=== PATIENT | male | born 1990 | race Hispanic/Latino ===

== ENCOUNTER 2017-05-23 19:59 | Inpatient (IN) | payer MEDICAID ==
--- NOTE | 2017-05-23 20:33 | C.PDOC ---
History Of Present Illness 27 year old male, with a history of alcohol abuse, presents to the ED request detox from alcohol. Patient notes last drink was earlier today around 4PM. Pt admits, was at different detox program before, failed treatment. Otherwise, pt denies other drug abuse, denies suicidal or homicidal ideation, denies nay other active physical complaints. Ambulate to ED for evaluation, not in any apparent distress, appropriate, cooperative. Time Seen by Provider: 05/23/17 20:19 Chief Complaint (Nursing): Substance Abuse History Per: Patient History/Exam Limitations: no limitations Suicide/Self Injury Attempted (Context): None Modifying Factor(s): Alcohol Severity: None Pain Scale Rating Of: 0 Associated Symptoms: denies: Suicidal Thoughts, Suicidal Plan Involuntary Hold By: None Recent travel outside of the [place]: No Past Medical History Reviewed: Historical Data, Nursing Documentation, Vital Signs Vital Signs: Last Vital Signs Temp 97.9 F 05/23/17 20:07 Pulse 92 H 05/23/17 20:07 Resp 18 05/23/17 20:07 BP 114/71 05/23/17 20:07 Pulse Ox 98 05/23/17 21:04 Family History: States: Unknown Family Hx - Social History Hx Alcohol Use: Yes Hx Substance Use: No Review Of Systems Constitutional: Negative for: Fever Cardiovascular: Negative for: Chest Pain Respiratory: Negative for: Shortness of Breath Gastrointestinal: Negative for: Nausea, Vomiting, Abdominal Pain, Diarrhea Psych: Negative for: Suicidal ideation Physical Exam - Physical Exam Appears: Well, Non-toxic, No Acute Distress Skin: Warm, Dry, No Rash Head: Atraumatic, Normacephalic Eye(s): bilateral: PERRL Nose: No Flaring Oral Mucosa: Moist, No Drooling Tongue: Normal Appearing Lips: Normal Appearing Throat: No Erythema, No Exudate, No Drooling Neck: Trachea Midline, Supple Chest: Symmetrical, No Deformity Cardiovascular: Rhythm Regular, No Murmur, No JVD Respiratory: No Decreased Breath Sounds, No Accessory Muscle Use, No Rales, No Rhonchi, No Wheezing Gastrointestinal/Abdominal: Soft, No Tenderness, No Distention, No Guarding, No Rebound Back: No CVA Tenderness, No Vertebral Tenderness Extremity: Normal ROM, No Tenderness, No Deformity, No Swelling Neurological/Psych: Oriented x3, Normal Speech, Normal Cognition, No Cerebellar Signs, Normal Motor, Normal Sensation, Normal Reflexes Gait: Steady ED Course And Treatment - Laboratory Results Result Diagrams: 05/23/17 20:38 05/23/17 20:38 Lab Interpretation: No Acute Changes O2 Sat by Pulse Oximetry: 98 (RA) Pulse Ox Interpretation: Normal Progress Note: UA and blood work were ordered. On re-evaluation, pt remained stable. Afebrile, hemodynamicaly stable. Non-toxic. Neurologicaly intact. Blood work review and appears normal. Pt is medically cleared for further crisis and psych evaluation/treatment. As per pit crew support worker Padmaja, case discussed with [id number] and admission arranged with Dx: Alcohol dependance. Disposition - Disposition Disposition: HOSPITALIZED Disposition Time: 21:01 Condition: STABLE Forms: [facility] (Divehi) - Clinical Impression Clinical Impression: Alcohol dependence - PA / PATCH WORKER / Resident Statement MD/DO has reviewed & agrees with the documentation as recorded. - Scribe Statement The provider has reviewed the documentation as recorded by the Scribinocencia Dent All medical record entries made by the Blakeibe were at my direction and personally dictated by me. I have reviewed the chart and agree that the record accurately reflects my personal performance of the history, physical exam, medical decision making, and the department course for this patient. I have also personally directed, reviewed, and agree with the discharge instructions and disposition.
[2017-05-23 20:50] LABS: RBC URINE 2 /hpf (0-3); URINE BACTERIA RARE (<OCC); URINE BILIRUBIN NEGATIVE (NEGATIVE); URINE BLOOD NEGATIVE (NEGATIVE); URINE COLOR Yellow (YELLOW); URINE GLUCOSE (UA) NORMAL (Normal); URINE KETONE NEGATIVE (NEGATIVE); URINE LEUKOCYTE ESTERASE NEG Leu/uL (Negative); URINE PROTEIN NEGATIVE (NEGATIVE); WBC URINE 2 /hpf (0-5)
[2017-05-23 20:51] LABS: CHLORIDE 99 mmol/L (98-107)
[2017-05-23 20:52] LABS: BASO # 0.1 K/uL (0.0-0.2); BASO % 1.6 % (0.0-2.0); EOS % 1.1 % (0.0-4.0); HEMATOCRIT 41.4 % (35.0-51.0); LYMPH # 1.5 K/uL (1.0-4.3); LYMPH % 38.2 % (20.0-40.0); MEAN CELL VOLUME 90.1 fL (80.0-94.0); MEAN CORPUSCULAR HEMOGLOBIN 30.6 pg (27.0-31.0); MEAN PLATELET VOLUME 8.1 fL (7.2-11.7); MONO # 0.3 K/uL (0.0-0.8); MONO % 6.7 % (0.0-10.0); NRBC % 0.1 % (0.0-2.0); POTASSIUM 3.4 mmol/L (3.6-5.2); RED CELL DISTRIBUTION WIDTH 15.6 % (11.5-14.5); SODIUM 136 mmol/L (132-148)
[2017-05-23 20:54] LABS: ALB/GLOB RATIO 1.8 (1.0-2.1); ALKALINE PHOSPHATASE 77 U/L (38-126); AST/SGOT 89 U/L (17-59); BILIRUBIN,TOTAL 0.6 mg/dL (0.2-1.3); BLOOD UREA NITROGEN 8 mg/dL (9-20); CARBON DIOXIDE 23 mmol/L (22-30); GFR AFRICAN-AMERICAN > 60; TOTAL PROTEIN 7.4 g/dL (6.3-8.3)
[2017-05-23 20:55] LABS: ALCOHOL SERUM 50 mg/dl (0-10); ALT/SGPT 109 U/L (21-72); CALCIUM 8.9 mg/dl (8.6-10.4); GLUCOSE,RANDOM 97 mg/dL (75-110)
--- NOTE | 2017-05-24 08:14 | PCM.BM ---
<Myla Gamboa - Last Filed: 05/24/17 08:12> Treatment Plan Problems - Problems identified on initial assessmt Potential for alcohol withdrawal Date Initiated: 05/24/17 Assessment reference: NA Status: Active Treatment assets and liabiliti Patient Assests: adapts well, cooperative, ADL independent, negotiates basic needs Patient Liabilities: substance abuse - Milieu Protocol Maintain good personal hygiene: daily Encourage regular showers, daily Remind patient to perform daily oral care, daily Assist patient to perform ADL's Conduct patient checks and document Observation sheet: Q15 minutes Maintain personal safety: every shift Educate patient to report safety concerns to staff, every shift Monitor environment for contraband/sharps Medication safety: Monitor for expected outcome, potential side effects: every shift, Assess barriers to learning: every shift, Assess readiness for medication education: every shift <Scott Meehan - Last Filed: 05/24/17 23:52> - Diagnosis (1) Alcohol dependence Status: Acute Interventions: 05/24/17 23:52 * Assess 7x/week regarding severity of withdrawal * Educate regarding risks, benefits, side effects and alternatives of medications * Use Motivational Interviewing for abstinence * Use CBT for relapse prevention * Medication management for withdrawal symptoms * Encourage medication assisted treatment * <Helena Kitchen - Last Filed: 05/27/17 12:40> Family Contact Family involvement: Family/SO is involved Family contact: Patient agrees to contact, Telephone contact initiated by staff Family contact name: parents - Goals for Treatment Patient goals for treatment: Complete detox and transition to IOP with Vivitrol component. Discharge/Continuing Care - Education Needs Education Needs: Patient Medication, Patient Diagnosis/Disease Process, Patient Coping Skills, Patient Anger Management skills, Patient Placement options, Patient Community resources - Discharge Discharge Criteria: Free of agitation, No longer exhibiting s/s of withdrawal, Reduction of target symptoms Discharge to:: Home, With Family - Treatment Team Participation Patient/Family/SO Statement: 05/27/17 12:40 "I wanna do an IOP and try Vivitrol." Discussed with Family/SO: No Was Patient/Family/SO present at Treatment Team Meeting: Yes
[2017-05-24] MEDS: Multiple Vitamins Tab PO SCH (10:02)
--- NOTE | 2017-05-24 13:54 | PCM.PSYCH ---
Initial Psychiatric Evaluation - Initial Psychiatric Evaluation Type of Admission: Voluntary Legal Status: Capacity Chief Complaint (in patient's own words): "Alcohol" History of Present Illness and Precipitating Events: The pt is seen, chart reviewed and case discussed He is a 27 yo WM, single, no child, no job, lives with mo and GM He is here for alcohol; drinks a qt a day x2-3 months but started when he was 21 y/o He claims he started very heavily and developed dependence and even DTs back then, no seizures. Pt has wdw sxs This is his 2nd detox, and he ahd been to IOP but no rehab He denies drugs Smokes 1 ppd Past psych hx: Denies Family hx: Father used alcohol a lot, so did both GPs. Medical hx: Denies Current Medications: Active Medications Generic Name Dose Route Start Last Admin Trade Name Freq PRN Reason Stop Dose Admin Chlordiazepoxide 25 mg 05/24/17 12:00 05/24/17 12:46 Librium PO 05/28/17 11:59 25 mg Q6 JOSE Administration Taper Chlordiazepoxide 25 mg 05/24/17 09:40 Librium PO Q4H PRN Alcohol Withdrawal Folic Acid 1 mg 05/24/17 10:00 05/24/17 10:02 Folic Acid PO 1 mg DAILY JOSE Administration Gabapentin 300 mg 05/24/17 10:00 05/24/17 10:02 Neurontin PO 300 mg BID JOSE Administration Hydroxyzine HCl 25 mg 05/24/17 09:39 Atarax PO Q4H PRN Anxiety Ibuprofen 600 mg 05/24/17 09:39 Motrin Tab PO Q6H PRN Pain, moderate (4-7) Multivitamins 1 tab 05/24/17 10:00 05/24/17 10:02 Hexavitamin PO 1 tab DAILY JOSE Administration Nicotine 1 patch 05/24/17 10:00 05/24/17 10:03 Nicoderm Cq TD 1 patch DAILY JOSE Administration Thiamine HCl 100 mg 05/24/17 10:00 05/24/17 10:03 Vitamin B1 Tab PO 100 mg DAILY JOSE Administration Trazodone HCl 50 mg 05/23/17 21:53 05/23/17 23:30 Desyrel PO 50 mg HS PRN Administration Insomnia Past Psychiatric History - Past Psychiatric History Previous Treatment History: None Pertinent Medical Hx (Current Medical&Sleep Prob, Allergies): Allergies Allergy/AdvReac Type Severity Reaction Status Date / Time No Known Allergies Allergy Unverified 05/23/17 20:11 Gabapentin [Neurontin] 800 mg PO TID 05/23/17 Review of Systems - Psychiatric Psychiatric: Abnormal Sleep Pattern, Anxiety. absent: Hallucinations, Homicidal Ideation, Suicidal Ideation Mental Status Examination - Personal Presentation Personal Presentation: Looks stated age - Affect Affect: Broad - Motor Activity Motor Activity: Calm - Reliability in Providing Information Reliability in Providing Information: Good - Speech Speech: Organized - Mood Mood: Anxious - Formal Thought Process Formal Thought Process: No Impairment - Cognitive Functions Orientation: Person, Place, Situation, Time Sensorium: Alert Attention/Concentration: Easily distracted Judgement: Intact, as evidence by: Insight regarding need for hospitalization Memory: Recent intact, as evidence by: Ability to recall events of the day, Remote intact, as evidenced by: Abilit to recall sig. life events - Risk Risk: Diminished functioning - Strength & Assets Inventory Strength & Assets Inventory: Cooperative DSM 5 DX - DSM 5 DSM 5 Diagnosis: Alcohol withdrawal - uncomp. Alcohol use d/o - severe - Recommended/Plan of Treatment Treatment Recommendations and Plan of Treatment: Ativan detox As needed medications Gabapentin for augmentation Attend groups and activities Supportive therapy and psychoeducation [place] for abstinence CBT for relapse prevention Encourage MAT Refer to rehab or IOP Attend self-help groups as well patch and [place] for tobacco 34 min Projected ELOS: 4-5 days Prognosis: good w treatment - Smoking Cessation Smoking Cessation Initiated: Yes
[2017-05-25] MEDS: Multiple Vitamins Tab PO SCH (09:56)
--- NOTE | 2017-05-25 22:38 | PCM.PYCHPN ---
Psychiatric Progress Note - Psychiatric Progress Note Patient seen today, length of contact: 17 minutes Patient Chief Complaint: I have no new complaints Problems Identified/Issues Discussed: The pt is seen, chart reviewed, case discussed with staff. Support given, CBT and [place] used briefly No new symptoms reported, improving slowly and needs more time No SEs from medications, risks discussed. After care discussed Medical Problems: Diabetic neuropathy DSM 5 Symptoms Update: etoh use d/o, severe dependence, severe etoh withdrawal without complication Medication Change: Yes (librium taper) Medical Record Reviewed: Yes Mental Status Examination - Cognitive Function Orientation: Person, Place, Situation, Time Memory: Intact Attention: WNL Concentration: WNL Association: WN Fund of Knowledge: WNL - Mood Mood: Anxious - Affect Affect: Broad - Speech Speech: Appropriate - Formal Thought Process Formal Thought Process: No Impairment Psychotic Thoughts and Behaviors: denied - Suicidal Ideation Suicidal Ideation: No - Homicidal Ideation Homicidal Ideation: No Goal/Treatment Plan - Goal/Treatment Plan Need for Continued Stay: Remain at risks for inpatient hospitalization, Discharge may exacerbated symptoms Progress Toward Problem(s) and Goals/Treatment Plan: Continue medications Support and psychoeducation daily Attend groups and activities daily After care planning by ALPA Estimated Date of D/C: 05/28/17 - Smoking Cessation Smoking Cessation Initiated: Yes
[2017-05-26 06:49] VITALS: RESP 18
[2017-05-26] MEDS: Multiple Vitamins Tab PO SCH (09:39)
--- NOTE | 2017-05-26 16:14 | PCM.PYCHPN ---
Psychiatric Progress Note - Psychiatric Progress Note Patient seen today, length of contact: 17 minutes Patient Chief Complaint: "I'm doing better" Problems Identified/Issues Discussed: The pt is seen, chart reviewed, case discussed with staff. Support given, CBT and [place] used briefly No new symptoms reported. Pt stated that he skip ativan dosage yesterday. He reported improvement in his tremors, but on evaluation he still had tongue fasciculation. Pt stated that he wants to be d/c on Saturday. No SEs from medications, risks discussed. After care discussed Medical Problems: Diabetic neuropathy DSM 5 Symptoms Update: etoh use d/o, severe dependence, severe etoh withdrawal without complication Medication Change: Yes (librium taper) Medical Record Reviewed: Yes Mental Status Examination - Cognitive Function Orientation: Person, Place, Situation, Time Memory: Intact Attention: WNL Concentration: WNL Association: WNL Fund of Knowledge: WNL - Mood Mood: Anxious (to neutral ) - Affect Affect: Broad - Speech Speech: Appropriate - Formal Thought Process Formal Thought Process: No Impairment Psychotic Thoughts and Behaviors: denied - Suicidal Ideation Suicidal Ideation: No - Homicidal Ideation Homicidal Ideation: No Goal/Treatment Plan - Goal/Treatment Plan Need for Continued Stay: Remain at risks for inpatient hospitalization, Discharge may exacerbated symptoms Progress Toward Problem(s) and Goals/Treatment Plan: Continue medications Support and psychoeducation daily Attend groups and activities daily After care planning by ALPA Estimated Date of D/C: 05/28/17
[2017-05-27] MEDS: Multiple Vitamins Tab PO SCH (09:12)
--- NOTE | 2017-05-27 13:38 | PCM.PYCHPN ---
Psychiatric Progress Note - Psychiatric Progress Note Patient seen today, length of contact: 16 min Patient Chief Complaint: "Much better" Problems Identified/Issues Discussed: The pt is seen, chart reviewed, case discussed with staff. The pt is compliant with medications and reports no side-effects. Symptoms are improving but needs more time to stabilize. After care discussed, support and psychoeducation given. Medication Change: Yes (librium taper) Medical Record Reviewed: Yes Mental Status Examination - Cognitive Function Orientation: Person, Place, Situation, Time Memory: Intact Attention: WNL Concentration: WNL Association: WNL Fund of Knowledge: WNL - Mood Mood: Anxious (to neutral ) - Affect Affect: Broad - Speech Speech: Appropriate - Formal Thought Process Formal Thought Process: No Impairment - Suicidal Ideation Suicidal Ideation: No - Homicidal Ideation Homicidal Ideation: No Goal/Treatment Plan - Goal/Treatment Plan Need for Continued Stay: Remain at risks for inpatient hospitalization, Discharge may exacerbated symptoms Progress Toward Problem(s) and Goals/Treatment Plan: Ativan detox As needed medications Gabapentin for augmentation Attend groups and activities Supportive therapy and psychoeducation [place] for abstinence CBT for relapse prevention Encourage MAT Refer to rehab or IOP Attend self-help groups as well patch and [place] for tobacco 34 min Estimated Date of D/C: 05/28/17
[2017-05-27 17:24] LABS: CHLORIDE 99 mmol/L (98-107)
[2017-05-27 17:25] LABS: POTASSIUM 4.1 mmol/L (3.6-5.2); SODIUM 134 mmol/L (132-148)
[2017-05-27 17:27] LABS: GFR AFRICAN-AMERICAN > 60
[2017-05-27 17:28] LABS: ALB/GLOB RATIO 1.5 (1.0-2.1); ALKALINE PHOSPHATASE 71 U/L (38-126); ALT/SGPT 299 U/L (21-72); AST/SGOT 248 U/L (17-59); BILIRUBIN,TOTAL 0.6 mg/dL (0.2-1.3); BLOOD UREA NITROGEN 17 mg/dL (9-20); CALCIUM 9.6 mg/dl (8.6-10.4); CARBON DIOXIDE 24 mmol/L (22-30); GLUCOSE,RANDOM 87 mg/dL (75-110); TOTAL PROTEIN 8.1 g/dL (6.3-8.3)
[2017-05-27 17:29] LABS: MAGNESIUM 1.9 mg/dL (1.6-2.3)
[2017-05-28 06:14] VITALS: BP 98/64
--- NOTE | 2017-05-28 08:50 | PCM.PYCHDC ---
Mental Status Examination - Mental Status Examination Orientation: Person Discharge Summary - Discharge Note Laboratory Data: Abnormal Lab Results 05/27/17 17:04 Sodium 134 Potassium 4.1 Chloride 99 Carbon Dioxide 24 Anion Gap 16 BUN 17 Creatinine 0.7 L Est GFR ( Amer) > 60 Est GFR (Non-Af Amer) > 60 Random Glucose 87 Calcium 9.6 Magnesium 1.9 Total Bilirubin 0.6 AST 248 H D ALT 299 H D Alkaline Phosphatase 71 Total Protein 8.1 Albumin 4.8 Globulin 3.3 Albumin/Globulin Ratio 1.5 Consultations:: List each consultation separately and include: 1. Reason for request. 2. Findings. 3. Follow-up Summary of Hospital Course include:: 1. Description of specific treatment plan utilized for patients during their course of treatmen. 2. Summarize the time- course for resolution of acute symptoms and/or regressed behaviors. 3. Describe issues identified and worked on during hospitalization. 4. Describe medication utilized. 5. Describe medical problems identified and treated. 6. Reassessment of suicide risk Summary of Hospital Course: The pt is seen, chart reviewed and case discussed He is a 27 yo WM, single, no child, no job, lives with dc and He is here for alcohol; drinks a qt a day x2-3 months but started when he was 21 y/o He claims he started very heavily and developed dependence and even DTs back then, no seizures. Pt has wdw sxs This is his 2nd detox, and he ahd been to IOP but no rehab He denies drugs Smokes 1 ppd Past psych hx: Denies Family hx: Father used alcohol a lot, so did both GPs. Medical hx: Denies - Diagnosis (1) Alcohol dependence Current Visit: Yes Status: Acute - Final Diagnosis (DSM 5) Condition upon Discharge: STABLE Disposition: HOME/ ROUTINE Follow-up Treatment Plan: Ativan detox As needed medications Gabapentin for augmentation Attend groups and activities Supportive therapy and psychoeducation [place] for abstinence CBT for relapse prevention Encourage MAT Refer to rehab or IOP Attend self-help groups as well patch and [place] for tobacco 34 min Prescriptions/Medication Reconciliation: Gabapentin [Neurontin] 300 mg PO BID #60 cap Multivitamins [Hexavitamin] 1 tab PO DAILY #30 tab traZODone [Desyrel] 50 mg PO HS PRN #30 tab PRN Reason: Insomnia
[2017-05-28] MEDS: Multiple Vitamins Tab PO SCH (09:20)
[2017-05-28 09:58] VITALS: PULSE 88; TEMP 98.2; O2SAT 99
== END 2017-05-28 10:10 | disposition home or self-care (01) | DRG 750 ==
LOC: C.ER 19:59 → C.7D 21:29
PROC: HZ2ZZZZ Detoxification Services for Substance Abuse Treatment (ICD-10-PCS; principal; 2017-05-23)
PROC: HZ46ZZZ Group Counseling for Substance Abuse Treatment, Psychoeducation (ICD-10-PCS; 2017-05-23)
PROC: HZ59ZZZ Individual Psychotherapy for Substance Abuse Treatment, Supportive (ICD-10-PCS; 2017-05-23)
PROC: HZ90ZZZ Pharmacotherapy for Substance Abuse Treatment, Nicotine Replacement (ICD-10-PCS; 2017-05-23)
DX: F10.230 Alcohol dependence with withdrawal, uncomplicated (principal); E11.40 Type 2 diabetes mellitus with diabetic neuropathy, unspecified; F17.210 Nicotine dependence, cigarettes, uncomplicated; Y90.2 Blood alcohol level of 40-59 mg/100 ml; Z79.84 Long term (current) use of oral hypoglycemic drugs

== ENCOUNTER 2017-11-27 17:40 | Inpatient (IN) | payer MEDICAID ==
[2017-11-27 18:22] VITALS: BMI 16.7
[2017-11-27 19:09] LABS: HEMOGLOBIN 13.8 g/dL (12.0-18.0); MEAN CELL VOLUME 87.7 fL (80.0-94.0); MEAN CORPUSCULAR HEMOGLOBIN 30.6 pg (27.0-31.0); MEAN CORPUSCULAR HGB CONC 34.9 g/dL (33.0-37.0); MEAN PLATELET VOLUME 7.9 fL (7.2-11.7); RBC 4.5 Mil/uL (4.40-5.90); RED CELL DISTRIBUTION WIDTH 14.7 % (11.5-14.5); WHITE BLOOD COUNT 4.3 K/uL (4.8-10.8)
[2017-11-27 19:33] LABS: SQUAMOUS EPITHIAL < 1 /hpf (0-5); URINE AMORPHOUS SEDIMENT FEW /ul (<OCC); URINE BACTERIA RARE (<OCC); URINE BILIRUBIN 1+ (NEGATIVE); URINE BLOOD NEGATIVE (NEGATIVE); URINE CLARITY Hazy (Clear); URINE GLUCOSE (UA) NORMAL (Normal); URINE LEUKOCYTE ESTERASE NEG Leu/uL (Negative); URINE PROTEIN 2+ mg/dL (NEGATIVE)
[2017-11-27 19:43] LABS: BARBITURATES, UR NEGATIVE (NEGATIVE); BENZODIAZEPINES, UR NEGATIVE (NEGATIVE); OPIATES, UR NEGATIVE (NEGATIVE); PHENCYCLIDINE, UR NEGATIVE (NEGATIVE)
[2017-11-27 19:46] LABS: ALB/GLOB RATIO 1.8 (1.0-2.1); ALBUMIN 4.6 g/dL (3.5-5.0); ALT/SGPT 110 U/L (21-72); AST/SGOT 166 U/L (17-59); BLOOD UREA NITROGEN 9 mg/dL (9-20); GFR AFRICAN-AMERICAN > 60; GFR NON-AFRICAN AMERICAN > 60
[2017-11-27 19:51] LABS: URINE COLOR YELLOW (YELLOW)
--- NOTE | 2017-11-27 20:18 | C.PDOC ---
History Of Present Illness 27 year old male presents to the ED as a prescreen for alcohol detox. Patient states he has attempted detox programs in the past, but has been unable to complete the program on his own. Patient reports his last drink was this afternoon. He denies vomiting, diarrhea, and has no other complaints at this time. Time Seen by Provider: 11/27/17 19:01 Chief Complaint (Nursing): Substance Abuse History Per: Patient History/Exam Limitations: no limitations Onset/Duration Of Symptoms: Hrs Current Symptoms Are (Timing): Still Present Suicide/Self Injury Attempted (Context): None Modifying Factor(s): Alcohol Associated Symptoms: denies: Suicidal Thoughts, Suicidal Plan Involuntary Hold By: None Recent travel outside of the [place]: No Additional History Per: Patient Past Medical History Reviewed: Historical Data, Nursing Documentation, Vital Signs Vital Signs: Last Vital Signs Temp 97.8 F 11/27/17 18:22 Pulse 83 11/27/17 18:22 Resp 18 11/27/17 18:22 BP 117/75 11/27/17 18:22 Pulse Ox 96 11/27/17 20:23 - Medical History PMH: No Chronic Diseases Denies: Diabetes, Hepatitis, HIV, HTN, Seizures, Sexually Transmitted Disease Surgical History: No Surg Hx - [facility] DETOXIFICATION SERVICES FOR SUBSTANCE ABUSE TREATMENT (05/23/17) GROUP FRAMING MECHANIC FOR SUBSTANCE ABUSE TREATMENT, PSYCHOEDUCATION (05/23/17) INDIV PSYCHOTHERAPY FOR SUBSTANCE ABUSE TREATMENT, SUPPORT (05/23/17) PHARMACOTHERAPY FOR SUBSTANCE ABUSE, NICOTINE REPLACE (05/23/17) Family History: States: Unknown Family Hx - Social History Hx Alcohol Use: Yes Hx Substance Use: No - Immunization History Hx Tetanus Toxoid Vaccination: No Hx Influenza Vaccination: No Hx Pneumococcal Vaccination: No Review Of Systems Psych: Positive for: Other (alcohol detox ) Physical Exam - Physical Exam Appears: Non-toxic, No Acute Distress Skin: Normal Color, Warm, Dry Head: Atraumatic, Normacephalic Eye(s): bilateral: Normal Inspection Oral Mucosa: Moist Neck: Supple Chest: Symmetrical, No Deformity, No Tenderness, Other (tachycardia ) Cardiovascular: Rhythm Regular, No Murmur Respiratory: Normal Breath Sounds, No Rales, No Rhonchi, No Wheezing Extremity: Normal ROM, Capillary Refill (less than 2 seconds ) Neurological/Psych: Oriented x3, Normal Speech, Normal Cognition Additional Physical Exam Comments: dark appearing urine sample noted ED Course And Treatment - Laboratory Results Result Diagrams: 11/27/17 19:04 11/27/17 19:04 Lab Interpretation: No Acute Changes O2 Sat by Pulse Oximetry: 96 (on RA) Pulse Ox Interpretation: Normal Progress Note: Bloodwork and urinalysis ordered and reviewed. Patient is medically cleared for a detox admission Reevaluation Time: 20:47 Reassessment Condition: Unchanged Disposition - Disposition Disposition: HOSPITALIZED Disposition Time: 20:48 Condition: STABLE - POA Present On Arrival: None - Clinical Impression Clinical Impression: Alcohol dependence - Scribe Statement The provider has reviewed the documentation as recorded by the Scribe (Vivian Romeo) Provider Attestation: All medical record entries made by the Scribe were at my direction and personally dictated by me. I have reviewed the chart and agree that the record accurately reflects my personal performance of the history, physical exam, medical decision making, and the department course for this patient. I have also personally directed, reviewed, and agree with the discharge instructions and disposition.
--- NOTE | 2017-11-27 21:06 | PCM.BM ---
<Grisel Lamas - Last Filed: 11/27/17 21:04> Treatment Plan Problems - Problems identified on initial assessmt POTIENTIAL FOR AUTONOMIC INSTABILITY RELATED TO ALCOHOL WITHDRAWAL Date Initiated: 11/27/17 Time Initiated: 21:05 Assessment reference: NA Status: Active Treatment assets and liabiliti Patient Assests: adapts well, cooperative, ADL independent, physically healthy, negotiates basic needs, cognitively intact Patient Liabilities: substance abuse, legal issue - Milieu Protocol Maintain good personal hygiene: daily Encourage regular showers, daily Remind patient to perform daily oral care, daily Assist patient to perform ADL's Maintain personal safety: every shift Educate patient to report safety concerns to staff, every shift Monitor environment for contraband/sharps Medication safety: Monitor for expected outcome, potential side effects: every shift, Assess barriers to learning: every shift, Assess readiness for medication education: every shift <Scott Meehan - Last Filed: 11/28/17 12:58> - Diagnosis (1) Alcohol dependence Status: Acute Interventions: 11/28/17 12:58 * Assess 7x/week regarding severity of withdrawal * Educate regarding risks, benefits, side effects and alternatives of medications * Use Motivational Interviewing for abstinence * Use CBT for relapse prevention * Medication management for withdrawal symptoms * Encourage medication assisted treatment *
[2017-11-28] MEDS: Multiple Vitamins Tab PO SCH (10:12)
--- NOTE | 2017-11-28 15:13 | PCM.PSYCH ---
Initial Psychiatric Evaluation - Initial Psychiatric Evaluation Type of Admission: Voluntary Legal Status: Capacity Chief Complaint (in patient's own words): "Alcohol" History of Present Illness and Precipitating Events: The pt is seen, chart reviewed and case discussed Patient is a 27 yo white male, with one child (lives with its mother) and a girlfriend. Patient works at [employer] and lives with mother and grandmother. He is here for alcohol; drinks 1 pint of vodka/day, relapsed one month ago, but started drinking when he was about 20 years old. This is his 3rd detox, he has been to [facility]. He went to rehab for the first time following last detox ([facility], May 2017). The longest period of sobriety was two years (from age [age]). He denies drug use. Smokes cigarettes, 1 ppd. Past psych hx: Denies Family hx: Father had alcohol use disorder Medical hx: Has neuropathy of both feet Current Medications: Active Medications Generic Name Dose Route Start Last Admin Trade Name Freq PRN Reason Stop Dose Admin Folic Acid 1 mg 11/28/17 10:00 11/28/17 10:12 Folic Acid PO 1 mg DAILY JOSE Administration Gabapentin 400 mg 11/28/17 10:00 11/28/17 14:28 Neurontin PO 400 mg TID JOSE Administration Hydroxyzine HCl 50 mg 11/28/17 09:44 Atarax PO Q6H PRN Anxiety Ibuprofen 600 mg 11/28/17 09:44 Motrin Tab PO Q6H PRN Pain, moderate (4-7) Lorazepam 2 mg 11/28/17 12:00 11/28/17 12:04 Ativan PO 12/03/17 11:59 2 mg Q6H JOSE Administration Taper Multivitamins 1 tab 11/28/17 10:00 11/28/17 10:12 Hexavitamin PO 1 tab DAILY JOSE Administration Thiamine HCl 100 mg 11/28/17 10:11/28/17 10:13 Vitamin B1 Tab PO Not Given DAILY JOSE Topiramate 25 mg 11/28/17 10:00 11/28/17 10:12 Topamax PO 25 mg BID JOSE Administration Trazodone HCl 50 mg 11/27/17 22:00 11/27/17 22:17 Desyrel PO 50 mg HS PRN Administration Insomnia Past Psychiatric History - Past Psychiatric History Pertinent Medical Hx (Current Medical&Sleep Prob, Allergies): Allergies Allergy/AdvReac Type Severity Reaction Status Date / Time No Known Allergies Allergy Verified 11/27/17 18:21 Gabapentin [Neurontin] 600 mg PO TID 05/23/17 Review of Systems - Psychiatric Psychiatric: Anxiety. absent: Hallucinations, Homicidal Ideation, Suicidal Ideation Mental Status Examination - Personal Presentation Personal Presentation: Looks stated age - Affect Affect: Broad - Motor Activity Motor Activity: Calm - Reliability in Providing Information Reliability in Providing Information: Good - Speech Speech: Organized - Mood Mood: Anxious - Formal Thought Process Formal Thought Process: No Impairment - Cognitive Functions Orientation: Person, Place, Situation, Time Sensorium: Alert Attention/Concentration: Attentive Estimate of Intelligence: Average Judgement: Intact, as evidence by: Insight regarding need for hospitalization Memory: Recent intact, as evidence by: Ability to recall events of the day, Remote intact, as evidenced by: Abilit to recall sig. life events - Risk Risk: Diminished functioning - Strength & Assets Inventory Strength & Assets Inventory: Cooperative DSM 5 DX - DSM 5 DSM 5 Diagnosis: Alcohol withdrawal - uncomp. Alcohol use d/o - severe - Recommended/Plan of Treatment Treatment Recommendations and Plan of Treatment: Ativan detox As needed medications Gabapentin for augmentation All risks, benefits and alternatives of the meds discussed, and the pt agreed and understood. Attend groups and activities Supportive therapy and psychoeducation WI for abstinence CBT for relapse prevention Encourage MAT Refer to rehab or IOP Attend self-help groups as well patch and WI for tobacco 35 min Projected ELOS: 4-5 days Prognosis: Good with treatment - Smoking Cessation Smoking Cessation Initiated: Yes
[2017-11-28] MEDS ORDERED: guaiFENesin DM 200 mg-20 mg/10 ml UD PO PRN (15:50)
[2017-11-29] MEDS: Multiple Vitamins Tab PO SCH (09:07)
[2017-11-29 10:28] VITALS: RESP 20
--- NOTE | 2017-11-29 14:02 | PCM.PYCHPN ---
Psychiatric Progress Note - Psychiatric Progress Note Patient seen today, length of contact: 18 min Patient Chief Complaint: "I'm ok" Problems Identified/Issues Discussed: The pt is seen, chart reviewed, case discussed with staff. Support given, CBT and ND used briefly No new symptoms reported, improving slowly and needs more time No SEs from medications, risks discussed. After care discussed Patient seemed anxious today, he was very concerned about the welfare of his unborn child, and was interested in getting his girlfriend (heroin user) into detox Medication Change: Yes (Detox changes daily) Medical Record Reviewed: Yes Mental Status Examination - Cognitive Function Orientation: Person, Place, Situation, Time Memory: Intact Attention: WNL Concentration: WNL Association: WNL Fund of Knowledge: WNL - Mood Mood: Anxious - Affect Affect: Broad - Speech Speech: Appropriate - Formal Thought Process Formal Thought Process: No Impairment - Suicidal Ideation Suicidal Ideation: No - Homicidal Ideation Homicidal Ideation: No Goal/Treatment Plan - Goal/Treatment Plan Need for Continued Stay: Discharge may exacerbated symptoms, Severe functional impairment Progress Toward Problem(s) and Goals/Treatment Plan: Continue medications Support and psychoeducation daily Attend groups and activities daily After care planning by [employer]
[2017-11-29 16:21] VITALS: BP 114/82; PULSE 116; TEMP 98.6; O2SAT 100
--- NOTE | 2017-11-30 17:50 | PCM.PYCHDC ---
Mental Status Examination - Mental Status Examination Orientation: Person Discharge Summary - Discharge Note Consultations:: List each consultation separately and include: 1. Reason for request. 2. Findings. 3. Follow-up Summary of Hospital Course include:: 1. Description of specific treatment plan utilized for patients during their course of treatmen. 2. Summarize the time- course for resolution of acute symptoms and/or regressed behaviors. 3. Describe issues identified and worked on during hospitalization. 4. Describe medication utilized. 5. Describe medical problems identified and treated. 6. Reassessment of suicide risk Summary of Hospital Course: The pt is seen, chart reviewed and case discussed Patient is a 27 yo white male, with one child (lives with its mother) and a girlfriend. Patient works at [email or web address] and lives with mother and grandmother. He is here for alcohol; drinks 1 pint of vodka/day, relapsed one month ago, but started drinking when he was about 20 years old. This is his 3rd detox, he has been to [facility]. He went to rehab for the first time following last detox ([facility], May 2017). The longest period of sobriety was two years (from age [age]). He denies drug use. Smokes cigarettes, 1 ppd. Past psych hx: Denies Family hx: Father had alcohol use disorder Medical hx: Has neuropathy of both feet - Diagnosis (1) Alcohol dependence Status: Acute - Final Diagnosis (DSM 5) Condition upon Discharge: STABLE Disposition: AGAINST MEDICAL ADVICE
== END 2017-11-29 19:40 | disposition left against medical advice (07) | DRG 749 ==
LOC: C.ER 17:40 → C.7D 20:45
PROC: HZ2ZZZZ Detoxification Services for Substance Abuse Treatment (ICD-10-PCS; principal; 2017-11-27)
DX: F10.230 Alcohol dependence with withdrawal, uncomplicated (principal); F17.210 Nicotine dependence, cigarettes, uncomplicated; F10.229 Alcohol dependence with intoxication, unspecified; Y90.3 Blood alcohol level of 60-79 mg/100 ml; Z68.1 Body mass index [BMI] 19.9 or less, adult